=== PATIENT | female | born 1980 | race Two or more races ===

== ENCOUNTER 2018-08-26 08:59 | Emergency (ER) | payer MEDICAID ==
[~2018-08-26] VITALS: Ht 182.9 cm; Wt 86.2 kg
[2018-08-26 09:12] VITALS: BP 136/88
[2018-08-26] MEDS ORDERED: IBUPROFEN 800 MG TAB PO ONE (09:45)
== END 2018-08-26 10:02 | disposition home or self-care (01) ==
LOC: ER 09:01
DX: M23.91 Unspecified internal derangement of right knee (principal); M25.561 Pain in right knee; G89.29 Other chronic pain
CPT/HCPCS: 93005

== ENCOUNTER 2019-11-21 13:52 | Emergency (ER) | payer MEDICAID ==
[~2019-11-21] VITALS: Ht 182.9 cm; Wt 81.6 kg
[2019-11-21 14:22] VITALS: BP 124/72
[2019-11-21] MEDS ORDERED: cefTRIAXone SOD 1,000 MG VL IM ONE (15:30)
== END 2019-11-21 15:35 | disposition home or self-care (01) ==
LOC: ER 13:52
DX: H60.11 Cellulitis of right external ear (principal)
CPT/HCPCS: 70486; 96372; 99284; J0696